=== PATIENT | male | born 1950 | race Hispanic/Latino ===

== ENCOUNTER → 2025-07-29 | Outpatient (CLI) | payer MEDICARE ==
--- NOTE | 2025-07-30 08:37 | HMCIMG ---
EXAM: MR Lumbar Spine Without Intravenous Contrast. 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 CONTRAST: None. COMPARISON: None. FINDINGS: For this examination, spinal levels were labeled assuming five [id number], lumbar-type vertebrae, with the inferior labeled L5. No acute fracture. Normal lordotic curvature. Normal vertebral body height and marrow signal intensity. Multilevel disc desiccation and mild disc bulges at L2-L3, L3-L4, L4-L5, and L5-S1 levels. Multilevel degenerative facet arthropathy. Conus medullaris terminates at the T12-L1 level. No abnormal epidural masses. 2.2 cm hemangioma in the L4 vertebra. The surrounding soft tissues are unremarkable. Individual spinal levels are described as follows: T12-L1: No disc bulge or herniation. No neural foraminal, lateral recess or spinal canal stenosis. L1-L2: No disc bulge or herniation. No neural foraminal, lateral recess or spinal canal stenosis. L2-L3: Disc desiccation with 3 mm left paracentral disc bulge with annular tear. Mild bilateral facet arthropathy and ligamentum flavum hypertrophy. No significant lateral recess, neural foraminal narrowing, or nerve impingement. No evidence of spinal canal stenosis. L3-L4: Disc desiccation. Minimal 3 mm disc bulge. Mild bilateral facet arthropathy and ligamentum flavum hypertrophy, left more than right. No significant lateral recess, neural foraminal narrowing, or nerve impingement. No evidence of spinal canal stenosis. L4-L5: Disc desiccation with broad-based circumferential 3.5 mm disc bulge. Moderate bilateral facet arthropathy and ligamentum flavum hypertrophy are left more than right. Mild narrowing of the left lateral recess and right neural foramina. Abutment of the right exiting L4 and left traversing L5 nerve root. No spinal canal stenosis. L5-S1: Disc desiccation. 3.5 mm right paracentral disc bulge with annular tear. Hypertrophic bilateral facet arthropathy is left more than right. Mild narrowing of the left neural foramina. Abutment of the left exiting L5 nerve root. No spinal canal stenosis. IMPRESSION: No evidence of acute fracture or subluxation. Normal vertebral body height. A 2.2 cm hemangioma in the L4 vertebra. Multilevel disc desiccation and mild disc bulges at L2-L3, L3-L4, L4-L5, and L5-S1 levels. Multilevel degenerative facet arthropathy and mild degenerative changes in the lumbar spine as described above. /[place]
== END | disposition home or self-care (01) ==
LOC: RAH 08:59
PROVIDERS: ATTEND Physician Assistant Medical
DX: M47.26 Other spondylosis with radiculopathy, lumbar region (principal); D18.09 Hemangioma of other sites; M48.07 Spinal stenosis, lumbosacral region; M51.379 Other intervertebral disc degeneration, lumbosacral region without mention of lumbar back pain or lower extremity pain
CPT/HCPCS: 72148